=== PATIENT | male | born 1975 | race Caucasian/White ===

== ENCOUNTER → 2018-01-05 | Outpatient (CLI) | payer OTHER ==
[~2018-01-05] MED LIST: REGADENOSON 0.4 MG/5 ML SYRINGE IV ONE
--- NOTE | 2018-01-05 12:07 | NM ---
EXAMINATION TYPE: NM stress lexiscan cardiolite DATE OF EXAM: 01/05/2018 COMPARISON: NONE HISTORY: Precordial chest pain and abnormal EKG TECHNIQUE: After the intravenous administration of 10.1 mCi Tc 99m Sestamibi - Cardiolite resting SP ECT images acquired 55 minutes post injection. The patient received 0.4mg Lexiscan, 26.5 mCi Tc 99m Sestamibi - Stress images obtained [address] injection FINDINGS: Review of stress and rest SPECT images demonstrates small focal areas of stress-induced ischemia sugg ested involving the inferior lateral wall as well as the septum. Correlate clinically. Gated analysis shows normal wall motion with an estimated left ventricular ejection fraction of 55% %. IMPRESSION: Small areas of reversible ischemia suggested as noted above.
--- NOTE | 2018-01-06 16:44 | EST ---
EXERCISE STRESS AGE: 42 SEX: Male. HT: 5'11" WT: 245 pounds PROTOCOL: Lexiscan Cardiolite STAGE: DURATION OF EXERCISE: HEART RATE REST: 52 BLOOD PRESSURE REST: 112/60 MAXIMUM HEART RATE ACHIEVED: 94 MAXIMUM BLOOD PRESSURE: 149/82 85% MPHR: 151 100% MPHR: 178 METS: INDICATIONS: Dyspnea. CLINICAL INFORMATION: Baseline 12-lead ECG shows normal sinus rhythm with early repolarization abnormality inferolaterally. Patient received Lexiscan infusion per protocol. No change in heart rate or blood pressure. No ECG abnormalities noted. No chest pain. Nuclear portion will be reported separately. MMODL / IJN: [id number] /
== END | disposition home or self-care (01) ==
LOC: RADNMMAIN 07:33
DX: R06.00 Dyspnea, unspecified (principal)
CPT/HCPCS: 93017; 78452; A9500; J2785